=== PATIENT | female | born 1950 | race Caucasian/White ===

== ENCOUNTER → 2016-06-24 | Outpatient (CLI) | payer BC, OTHER ==
[~2016-06-24] VITALS: Ht 156.8 cm; Wt 74.8 kg
[~2016-06-24] MED LIST: ACET1TAB84 PO; CLIN1LOT5 TOP; ERGO1CAP35 PO; LPT/20 PO; MECL1TAB42 PO; ONDA4TAB65 PO; OXYC1TAB3 PO; PANT40TA PO; PROB1TAB16 PO; RIVA1TAB PO; SERT-234 PO; THIO50TA PO; TRAM-453 PO; TURMERIC PO; VALA1TAB31 PO; [UNRECOGNIZED DRUG - CODE] OPB
[2016-06-24 09:04] VITALS: Ht 156.8 cm; Wt 74.8 kg
--- NOTE | 2016-06-24 09:38 | PAT Medication Instructions ---
Service Date June 24, 2016. Current Home Medication List Acetaminophen (Tylenol Arthritis Ext Rel), 1,300 MG PO PRN Atorvastatin (Atorvastatin Calcium), 20 MG PO QAM Clindamycin Phosphate (Topical (Clindamycin Phosphate), 1 APPLN TOP PRN Ergocalciferol (Vitamin D Cap), 50,000 INTER.UNIT PO MONTHLY Vnaajmod-Csktcixmiqjk-Ywzpjhwa (Visine Tears), 1 DROP OPB QAM PRN Pantoprazole (Protonix), 40 MG PO BID Probiotic Product (Probiotic), 1 TAB PO QPM Sertraline (Zoloft), 100 MG PO QAM Thioridazine Hcl (Mellaril), 50 MG PO HS Tramadol Hcl (Ultram), 100 MG PO Q4H PRN for Pain Valacyclovir Hcl (Valtrex), 1 GM PO UD [Turmeric], 1 TAB PO QPM Medication Instructions For Your Scheduled Surgery Ergocalciferol (Vitamin D Cap), 50,000 INTER.UNIT PO MONTHLY (continue as directed) - Hold the following medications 2 weeks prior to surgery: [Turmeric], 1 TAB PO QPM - Hold the following medications 24 hours prior to surgery: Clindamycin Phosphate (Topical (Clindamycin Phosphate), 1 APPLN TOP PRNf - Take the following medications the morning of surgery with a sip of water: Valacyclovir Hcl (Valtrex), 1 GM PO UD PRN (if needed) Tramadol Hcl (Ultram), 100 MG PO Q4H PRN for Pain (okay to take up to 4 hours prior to surgery if needed) Sertraline (Zoloft), 100 MG PO QAM Pantoprazole (Protonix), 40 MG PO BID Vhcvchyp-Unerdjueetgn-Chotpkdr (Visine Tears), 1 DROP OPB QAM PRN (If needed) Acetaminophen (Tylenol Arthritis Ext Rel), 1,300 MG PO PRN (If needed) Atorvastatin (Atorvastatin Calcium), 20 MG PO QAM - Take the following medications as scheduled the night before surgery: Tramadol Hcl (Ultram), 100 MG PO Q4H PRN for Pain (If needed) Probiotic Product (Probiotic), 1 TAB PO QPM Pantoprazole (Protonix), 40 MG PO BID Acetaminophen (Tylenol Arthritis Ext Rel), 1,300 MG PO PRN (If needed) Thioridazine Hcl (Mellaril), 50 MG PO HS If you have any questions please call us at [phone] (Ursula Morris PA-C ) or [phone] or [phone]
--- NOTE | 2016-06-24 10:08 | DIAGNOSTIC IMAGING REPORT ---
CHEST PREADMISSION(PA/LAT) HISTORY: Preop. COMPARISON: Chest 09/06/2014. FINDINGS: The lungs are clear. Cardiac silhouette is normal in size. No pleural effusions. No pneumothorax. Cholecystectomy. IMPRESSION: No acute process. Electronically signed by: Dion Cook M.D. 06/24/2016 10:07 AM Dictated Date/Time: 06/24/2016 10:04 AM
[2016-06-24 10:18] LABS: BASO % 0.2 %; BASO ABS # 0.01 K/uL (0-0.2); COMPLETE YES; EOS % 1.7 %; HEMATOCRIT 36.6 % (37-47); IG% 0.4 %; LYMPH % 35.1 %; LYMPH ABS # 1.88 K/uL (1.2-3.4); MEAN CELL VOLUME 93.8 fL (80-100); MONO % 9.5 %; NEUT % 53.1 %; PLATELET COUNT 239 K/uL (130-400); WHITE BLOOD COUNT 5.36 K/uL (4.8-10.8)
[2016-06-24 10:32] LABS: PROTHROMBIN TIME (PATIENT) 10.7 SECONDS (9.0-12.0)
[2016-06-24 10:33] LABS: CREATININE 1.1 mg/dl (0.60-1.20); POTASSIUM 4.2 mmol/L (3.5-5.1)
[2016-06-24 10:37] LABS: C-REACTIVE PROTEIN 0.32 mg/dl (0-0.29)
== END | disposition home or self-care (01) ==
LOC: C.LAB 08:00 → EDSTATUS 07-22 12:30
PROVIDERS: ATTEND Orthopaedic Surgery Sports Medicine
DX: Z01.818 Encounter for other preprocedural examination (principal); M17.9 Osteoarthritis of knee, unspecified

== ENCOUNTER → 2016-06-30 | Outpatient (CLI) | payer BC ==
[~2016-06-30] MED LIST changes: +ERGO500011 PO; -MECL1TAB42 PO; -ONDA4TAB65 PO; -OXYC1TAB3 PO; +PANT40TA2 PO; -RIVA1TAB PO; +ZLF/100 PO
--- NOTE | 2016-06-30 16:22 | DIAGNOSTIC IMAGING REPORT ---
TWO VIEW CHEST CLINICAL HISTORY: Cough. FINDINGS: PA and lateral chest radiographs are compared to study dated 06/24/2016. The cardiomediastinal silhouette is unremarkable. There are ill-defined airspace opacities in the right mid to upper lung. The left lung appears clear. No pleural effusion or pneumothorax is seen. The skeletal structures are osteopenic. The bony thorax appears intact. Cholecystectomy clips are identified in the right upper quadrant. IMPRESSION: There are ill-defined/patchy airspace opacities in the right mid to upper lung. Correlate clinically for evidence of pneumonia. Radiographic follow-up to resolution is recommended. Electronically signed by: Mario Campa M.D. 06/30/2016 4:21 PM Dictated Date/Time: 06/30/2016 4:18 PM
== END | disposition home or self-care (01) ==
LOC: C.RADBC 16:10
PROVIDERS: ATTEND Internal Medicine
DX: R05 Cough (principal)

== ENCOUNTER → 2016-08-05 | Outpatient (CLI) | payer BC ==
--- NOTE | 2016-08-05 13:24 | DIAGNOSTIC IMAGING REPORT ---
TWO VIEW CHEST CLINICAL HISTORY: Follow-up pneumonia. FINDINGS: PA and lateral chest radiographs are compared to study dated 06/30/2016 and correlated with chest CT dated 10/18/2008. The cardiomediastinal silhouette is unremarkable. Chronic interstitial thickening is unchanged. The lungs and pleural spaces are otherwise clear. There is no pneumothorax. The skeletal structures are osteopenic. Degenerative change is noted throughout the thoracic spine. Cholecystectomy clips are identified in the right upper quadrant. IMPRESSION: The lungs are clear. Patchy airspace opacities seen on 06/30/2016 have resolved. Electronically signed by: Mario Campa M.D. 08/05/2016 1:23 PM Dictated Date/Time: 08/05/2016 1:22 PM
== END | disposition home or self-care (01) ==
LOC: C.LABBC 13:00
PROVIDERS: ATTEND Internal Medicine
DX: J15.9 Unspecified bacterial pneumonia (principal)

== ENCOUNTER → 2016-08-26 | Outpatient (CLI) | payer BC ==
[~2016-08-26] MED LIST changes: -ERGO500011 PO; -PANT40TA2 PO; -ZLF/100 PO
[2016-08-26 17:17] LABS: HEMATOCRIT 40.2 % (37-47); MEAN CELL VOLUME 92.6 fL (80-100); MEAN CORPUSCULAR HGB CONC 32.3 g/dl (32-36); MEAN PLATELET VOLUME 9.9 fL (7.4-10.4); PLATELET COUNT 230 K/uL (130-400); RED BLOOD COUNT 4.34 M/uL (4.2-5.4); WHITE BLOOD COUNT 4.79 K/uL (4.8-10.8)
[2016-08-26 17:19] LABS: URINE APPEARANCE CLEAR (CLEAR); URINE BILIRUBIN NEG (NEG); URINE COLOR YELLOW; URINE NITRITE NEG (NEG); URINE PH 5.5 (4.5-7.5); URINE SPECIFIC GRAVITY 1.014 (1.000-1.030); UROBILINOGEN NEG (NEG)
[2016-08-26 17:22] LABS: MANUAL MICROSCOPIC REQUIRED? NO; REVIEW REQ? NO
[2016-08-26 17:29] LABS: BLOOD UREA NITROGEN 18 mg/dl (7-18); BUN/CREATININE RATIO 16.8 (10-20); CALCIUM 8.9 mg/dl (8.5-10.1); CARBON DIOXIDE 25 mmol/L (21-32); CHLORIDE 110 mmol/L (98-107); GLUCOSE 99 mg/dl (70-99); PHOSPHORUS 2.7 mg/dl (2.5-4.9); SODIUM 142 mmol/L (136-145)
[2016-08-26 17:45] LABS: URINE PROTIEN/CREAT RATIO 0.1 (0-0.2); URINE TOTAL PROTEIN 7.8 mg/dl (0-11.9)
== END | disposition home or self-care (01) ==
LOC: C.LABBC 13:00
PROVIDERS: ATTEND Internal Medicine Nephrology
DX: N18.3 Chronic kidney disease, stage 3 (moderate) (principal); E55.9 Vitamin D deficiency, unspecified; N25.81 Secondary hyperparathyroidism of renal origin

== ENCOUNTER → 2016-11-11 | Outpatient (CLI) | payer BC ==
[2016-11-11 12:53] LABS: THYROID STIMULATING HORMONE 2.49 uIu/ml (0.300-4.500)
== END | disposition home or self-care (01) ==
LOC: C.LAB1850 10:14
PROVIDERS: ATTEND Obstetrics & Gynecology
DX: R23.2 Flushing (principal)

== ENCOUNTER → 2016-11-19 | Outpatient (CLI) | payer BC ==
--- NOTE | 2016-11-20 13:53 | MAMMOGRAPHY REPORT ---
BILATERAL DIGITAL SCREENING MAMMOGRAM TOMOSYNTHESIS WITH CAD: 11/19/2016 CLINICAL HISTORY: Routine screening. Patient has no complaints. TECHNIQUE: Breast tomosynthesis in addition to standard 2D mammography was performed. Current study was also evaluated with a Computer Aided Detection (CAD) system. COMPARISON: Comparison is made to exams dated: 11/19/2015 mammogram, 11/16/2014 mammogram, 10/31/2013 m ammogram, 10/29/2012 mammogram, 10/29/2011 mammogram, and 12/18/2010 mammogram - [facility] enter. BREAST COMPOSITION: The tissue of both breasts is almost entirely fatty. FINDINGS: Stable circumscribed round 3 mm mass in the 12:00 posterior left breast is unchanged in siz e dating back to at least 2013, therefore likely benign. No new suspicious mass, architectural disto rtion or cluster of microcalcifications is seen. IMPRESSION: ACR BI-RADS CATEGORY 1: NEGATIVE There is no mammographic evidence of malignancy. A 1 year screening mammogram is recommended. The pa tient will receive written notification of the results. Approximately 10% of breast cancers are not detected with mammography. A negative mammographic report should not delay biopsy if a clinically suggestive mass is present. Cuca Grady M.D. ay/:11/19/2016 14:01:31 Podiatry Professor: Nicolasa GUADARRAMA(Elisa)(Hal), [facility] letter sent: Normal 1/2 BI-RADS Code: ACR BI-RADS Category 1: Negative
== END ==
LOC: C.MAMM 13:28
PROVIDERS: ATTEND Obstetrics & Gynecology
DX: Z12.31 Encounter for screening mammogram for malignant neoplasm of breast (principal)

== ENCOUNTER 2016-12-02 13:47 | Emergency (ER) | payer BC ==
[~2016-12-02] VITALS: Ht 154.9 cm; Wt 69.0 kg
[~2016-12-02 13:47] MED LIST changes: -THIO50TA PO
[2016-12-02 13:50] VITALS: TEMP 36.5; Ht 154.9 cm; Wt 69.0 kg
--- NOTE | 2016-12-02 14:38 | EMERGENCY ROOM VISIT NOTE ---
History First contact with patient: 13:58 Chief Complaint: BACK PAIN Stated Complaint: BACK AND RIGHT SIDE PAIN History of Present Illness The patient is a 66 year old female who presents to the Emergency Room with complaints of right upper quadrant/right rib pain. The patient states that this is been an ongoing issue for many years. States that it comes and goes and she often notices it when she is up moving around. She describes a burning pain that starts in her right anterior ribs, and radiates up into the axilla and then into the back to a point in the midthoracic area just to the right of the spine. The pain gets better when she has a meal. This morning she took Protonix and Tums and thought that it actually slightly better. The pain is not associated with walking or exertion. She treats in part her pain worsened today because she was using a medicine ball at home to release and chronic back pain and is maybe she overdid it. Of note the patient does have a history of cholecystectomy. She notes that she has also been given a diagnosis of costochondritis in the past. The patient denies any nausea, vomiting, diarrhea or constipation. The patient does not have any exertional chest pain, palpitations, lightheadedness or dizziness, orthopnea or lower external swelling. The patient is not having any issues with voiding and is urinating any symptoms of dysuria or frequency. She does note that over the past week and her sister was in town visiting and they had multiple drinks alcohol. She states that at baseline she would previous drink 1.5 fluid ounces of whiskey per night. However she says that she recently stopped this because she is now on a [employer] program. Review of Systems A 10 point review of systems was negative unless stated above. Past Medical/Surgical History Medical Problems: (1) Right Knee DJD (2) Stage III chronic kidney disease Surgical Problems: (1) Status post right knee replacement Hypoparathyroidism Chronic Back Pain Osteoarthritis Schizoaffective Social History Smoking Status: Never Smoker Smokeless Tobacco Use: No Alcohol Use: occasionally (1.5 oz J Carlos nightly) Drug Use: none Marital Status: Occupation Status: unemployed Current/Historical Medications Scheduled Atorvastatin (Atorvastatin Calcium), 20 MG PO QAM Ergocalciferol (Vitamin D 02400 Unit), 50,000 INTER.UNIT PO MONTHLY Pantoprazole (Pantoprazole Sodium), 40 MG PO BID Sertraline HCl (Sertraline HCl), 100 MG PO QAM Thioridazine Hcl (Mellaril), 50 MG PO HS Valacyclovir Hcl (Valtrex), 1 GM PO UD Scheduled PRN Acetaminophen (Tylenol Arthritis Ext Rel), 1,300 MG PO UD PRN for Pain Bcfoumel-Anvpgjkrqkqb-Shipaojj (Visine Tears), 1 DROP OPB QAM PRN for Dry Eye(s) Allergies As noted above. Physical Exam Vital Signs Date Time Temp Pulse Resp B/P (MAP) Pulse Ox O2 Delivery O2 Flow Rate FiO2 12/02/16 16:16 65 20 140/85 95 Room Air 12/02/16 13:50 36.5 80 16 167/81 93 Room Air Physical Exam Constitutional: Vital signs as above were reviewed. Eyes: Pupils equal, round, and reactive to light. Extraocular muscles are intact. No proptosis. No photophobia. ENT: Mucous membranes are moist. Oropharynx is clear. Chest Wall: Chest wall tenderness in the axilla. No obvious deformity. No rashes or vesicular rashes Cardiovascular: Heart with a regular rate and rhythm. Pulses are palpable and symmetric in all 4 extremities. No pedal edema appreciated. Respiratory: Lungs clear to auscultation bilaterally. No wheezes, rales, or rhonchi appreciated. No accessory muscle use. No retractions. No increased work of breathing. GI: Abdomen soft, nontender, nondistended. Normal active bowel sounds. No abdominal hernias appreciated. No rebound. No guarding. Negative Jimenez's signs : No CVA tenderness appreciated. Musculoskeletal: No midline cervical or vertebral tenderness. No gross deformities. No bony tenderness. No calf swelling or tenderness. Integumentary: Warm, dry, no rashes appreciated. No vesicular rashes. Neurological: Patient awake, alert, and oriented x 3. Lymph: No cervical lymphadenopathy appreciated. Medical Decision & Procedures ER Provider Diagnostic Interpretation: RIGHT RIBS INCLUDING PA ERECT CHEST CLINICAL HISTORY: Right-sided rib pain COMPARISON STUDY: No previous studies for comparison. FINDINGS: Erect chest reveals no pneumothorax. There is no focal pulmonary consolidation. There are surgical clips within the right upper quadrant consistent with a prior cholecystectomy. No right-sided rib fractures are visualized. IMPRESSION: No evidence of pneumothorax. No right-sided rib fractures are visualized. Electronically signed by: Peña Rose M.D. 12/02/2016 3:55 PM Dictated Date/Time: 12/02/2016 3:54 PM The status of this report is Signed. Draft = Not yet reviewed or approved by Radiologist. Signed = Reviewed and approved by Radiologist. THORACIC SPINE 3 VIEWS ROUTINE CLINICAL HISTORY: back pain COMPARISON STUDY: No previous studies for comparison. FINDINGS: The paraspinal line is not significantly displaced. There are multilevel degenerative changes with prominent anterior osteophytes. No fractures or destructive lesions are visualized on conventional radiographic imaging. IMPRESSION: 1. Moderate degenerative change with prominent bridging anterior osteophytes 2. No acute fractures or subluxations identified Electronically signed by: Peña Rose M.D. 12/02/2016 3:54 PM Dictated Date/Time: 12/02/2016 3:53 PM The status of this report is Signed. Draft = Not yet reviewed or approved by Radiologist. Signed = Reviewed and approved by Radiologist. Laboratory Results 12/02/16 14:10 Red Blood Count 4.10, Mean Corpuscular Volume 91.5, Mean Corpuscular Hemoglobin 30.5, Mean Corpuscular Hemoglobin Concent 33.3, Mean Platelet Volume 9.2, Neutrophils (%) (Auto) 74.4, Lymphocytes (%) (Auto) 18.1, Monocytes (%) (Auto) 6.0, Eosinophils (%) (Auto) 1.1, Basophils (%) (Auto) 0.2, Neutrophils # (Auto) 4.81, Lymphocytes # (Auto) 1.17, Monocytes # (Auto) 0.39, Eosinophils # (Auto) 0.07, Basophils # (Auto) 0.01 12/02/16 14:10 Test 12/02/16 14:10 White Blood Count 6.46 K/uL (4.8-10.8) Red Blood Count 4.10 M/uL (4.2-5.4) Hemoglobin 12.5 g/dL (12.0-16.0) Hematocrit 37.5 % (37-47) Mean Corpuscular Volume 91.5 fL (80-100) Mean Corpuscular Hemoglobin 30.5 pg (25-34) Mean Corpuscular Hemoglobin Concent 33.3 g/dl (32-36) Platelet Count 188 K/uL (130-400) Mean Platelet Volume 9.2 fL (7.4-10.4) Neutrophils (%) (Auto) 74.4 % Lymphocytes (%) (Auto) 18.1 % Monocytes (%) (Auto) 6.0 % Eosinophils (%) (Auto) 1.1 % Basophils (%) (Auto) 0.2 % Neutrophils # (Auto) 4.81 K/uL (1.4-6.5) Lymphocytes # (Auto) 1.17 K/uL (1.2-3.4) Monocytes # (Auto) 0.39 K/uL (0.11-0.59) Eosinophils # (Auto) 0.07 K/uL (0-0.5) Basophils # (Auto) 0.01 K/uL (0-0.2) RDW Standard Deviation 47.8 fL (36.4-46.3) RDW Coefficient of Variation 14.3 % (11.5-14.5) Immature Granulocyte % (Auto) 0.2 % Immature Granulocyte # (Auto) 0.01 K/uL (0.00-0.02) Anion Gap 8.0 mmol/L (3-11) Est Creatinine Clear Calc Drug Dose 43.5 ml/min Estimated GFR () 57.6 Estimated GFR (Non- 49.7 BUN/Creatinine Ratio 21.9 (10-20) Calcium Level 9.4 mg/dl (8.5-10.1) Total Bilirubin 0.4 mg/dl (0.2-1) Aspartate Amino Transf (AST/SGOT) 18 U/L (15-37) Alanine Aminotransferase (ALT/SGPT) 11 U/L (12-78) Alkaline Phosphatase 107 U/L (45-117) Total Protein 7.0 gm/dl (6.4-8.2) Albumin 3.6 gm/dl (3.4-5.0) Globulin 3.4 gm/dl (2.5-4.0) Albumin/Globulin Ratio 1.0 (0.9-2) Lipase 202 U/L (73-393) ECG Change: Normal sinus rhythm Normal ECG When compared with ECG of 24-JUN-2016 09:49, No significant change was found ED Course 14:00 - The patient was seen and evaluated by Dr. Pietro Malone MD [address] Medicine 14:30 - Labs: CBC, CMP, Lipase, EKG, CXR 14:40 - X-ray thoracic spine, Right rib series 16:25 - Reviewed labs and x-rays; normal labs. No acute abnormalities noted 16:40 - Discussed labs and x-ray results with patient; recommend discharge home with PCP follow-up, patient agreeable 16:45 - Discharge paperwork completed Medical Decision The patient presents with chronic right anterior and axillary rib pain, and addition to a fairly recent increase in discomfort to her right mid thoracic spine. Differential includes gallbladder disease, hepatitis, rib fracture, costochondritis, ACS, pulmonary embolism, pneumothorax, gastritis, peptic ulcer disease, pancreatitis, shingles. The patient has had right breast lumpectomy previously, so the possible that there is some nerve irritation over the healing ridge. She also notes previous diagnosis of costochondritis. The patient has had her gallbladder removed previously, therefore cholecystitis is not possible but the possibility of retained stone could be considered. The patient did get relief from Protonix and Tums, making gastritis possibility. The patient has of a history of shingles that usually presents on her left buttock. With any episodes of this rib pain which she describes as burning, she 's never had any kind of vesicular rash eruption. Given recurrent episodes of this right anterior chest pain without any vesicular eruption, my suspicion for shingles very low. The pain is not associated with being upright and walking, therefore pattern in time he is really consistent with acute coronary syndrome. The pain does radiate somewhat to the paraspinal area in the mid thoracic spine. It is certainly possible that there is some serratus anterior spasm involved. In my opinion the origin of her pain seems multifactorial. She is noted to have some costochondritis and this can certainly be an element of that. She has chronic back pain, and imbalance on the paraspinal muscles of the resulting disruption of adjacent muscles such as the serratus or trapezius muscles. Radiographs were negative for any acute bony process such as fractures or dislocations. There may be GI component to her symptoms given that she has some improvement with Protonix and Tums use. I encouraged her to continue on with these at this time and that her shorer would make the decision as to whether her symptoms are suspicious for GI etiology. We did check labs, and her liver function was normal. She is also concerned about pancreatitis, but lipase was fortunately normal. At this time there are no acute findings that would warrant admission. I reassured the patient that she does not have pancreatitis, and that the origin of her pain seems to be more musculoskeletal. I noted her the close follow-up with her primary care provider will be important. She may also benefit from outpatient referral for physical therapy which can be done through her primary care provider. The patient was reassured by this and was very agreeable to the plan. The patient was discharged home in stable condition. Head Trauma GCS Score: 15 Blood Pressure Screening Patient's blood pressure: Normal blood pressure Blood pressure disposition: Elevated BP felt to be situational Impression Primary Impression: Right-sided chest wall pain Additional Impression: Thoracic back pain Ruled Out: Pancreatitis Departure Information Dispostion Home / Self-Care Condition GOOD Referrals Jesus Jimenez MD (PCP) Patient Instructions My [facility] Additional Instructions You came to the emergency room for some pain in your right ribs as well as pain in your right mid back. We checked x-rays of your ribs and back. These showed some arthritis in the back, but no fractures. You did not have any rib fractures. We also checked lab work. Your liver function is normal. We also did a lab test called a lipase which checks for pancreatitis and this was normal as well. When we examined you, you had some tenderness in your your right chest and arm pit. This points to more of a muscular cause. You can try and treat this at home with Tylenol, and if Tylenol does not work he can try your home dose of Tramadol. You can also try and heat packs and ice packs. If this is muscular, it may be worth seeing a physical therapist for input on exercises that may help with this. If your symptoms fail to improve, acutely worsen, please seek medical attention immediately by either calling your primary care provider or going to your nearest emergency department. Otherwise, please see your primary care provider to ensure that your symptoms continue to improve. It was a pleasure to be involved in your care and we wish you all the best. Problem Qualifiers
[2016-12-02 14:56] LABS: BASO % 0.2 %; BASO ABS # 0.01 K/uL (0-0.2); COMPLETE YES; EOS % 1.1 %; HEMATOCRIT 37.5 % (37-47); IG% 0.2 %; LYMPH % 18.1 %; LYMPH ABS # 1.17 K/uL (1.2-3.4); MEAN CELL VOLUME 91.5 fL (80-100); MEAN CORPUSCULAR HEMOGLOBIN 30.5 pg (25-34); MEAN CORPUSCULAR HGB CONC 33.3 g/dl (32-36); MEAN PLATELET VOLUME 9.2 fL (7.4-10.4); NEUT % 74.4 %; PLATELET COUNT 188 K/uL (130-400); WHITE BLOOD COUNT 6.46 K/uL (4.8-10.8)
[2016-12-02 15:14] LABS: BUN/CREATININE RATIO 21.9 (10-20); CALCIUM 9.4 mg/dl (8.5-10.1); CREATININE 1.16 mg/dl (0.60-1.20); POTASSIUM 3.7 mmol/L (3.5-5.1)
[2016-12-02] MEDS ORDERED: ERGO1CAP41 PO (15:28)
[2016-12-02] MEDS ORDERED: PRT/40 PO (15:28)
[2016-12-02] MEDS ORDERED: ZLF/100 PO (15:28)
--- NOTE | 2016-12-02 15:55 | DIAGNOSTIC IMAGING REPORT ---
THORACIC SPINE 3 VIEWS ROUTINE CLINICAL HISTORY: back pain COMPARISON STUDY: No previous studies for comparison. FINDINGS: The paraspinal line is not significantly displaced. There are multilevel degenerative changes with prominent anterior osteophytes. No fractures or destructive lesions are visualized on conventional radiographic imaging. IMPRESSION: 1. Moderate degenerative change with prominent bridging anterior osteophytes 2. No acute fractures or subluxations identified Electronically signed by: Peña Rose M.D. 12/02/2016 3:54 PM Dictated Date/Time: 12/02/2016 3:53 PM
--- NOTE | 2016-12-02 15:56 | DIAGNOSTIC IMAGING REPORT ---
RIGHT RIBS INCLUDING PA ERECT CHEST CLINICAL HISTORY: Right-sided rib pain COMPARISON STUDY: No previous studies for comparison. FINDINGS: Erect chest reveals no pneumothorax. There is no focal pulmonary consolidation. There are surgical clips within the right upper quadrant consistent with a prior cholecystectomy. No right-sided rib fractures are visualized. IMPRESSION: No evidence of pneumothorax. No right-sided rib fractures are visualized. Electronically signed by: Peña Rose M.D. 12/02/2016 3:55 PM Dictated Date/Time: 12/02/2016 3:54 PM
[2016-12-02 16:16] VITALS: BP 140/85; PULSE 65; O2SAT 95
--- NOTE | 2016-12-02 20:02 | EMERGENCY ROOM VISIT NOTE ---
History Report prepared by Bianca: Sony Almanza Under the Supervision of: Dr. Sahil Robles M.D. First contact with patient: 13:58 Chief Complaint: BACK PAIN Stated Complaint: BACK AND RIGHT SIDE PAIN History of Present Illness The patient is a 66 year old female who presents to the Emergency Room with complaints of intermittent right upper abdominal pain beginning three days ago. Her pain wraps around into her upper right back. She states that the pain in her back has been present for "months", but she has not had similar pain in her abdomen in 15 years. The patient describes her pain as "burning". She notes that she had stopped drinking alcohol, but had some over the past weekend. She states that she has been having small amounts of J [place]. The patient states that her pain is improved after eating and Protonix. She denies nausea, vomiting, diarrhea, urinary symptoms, black or tarry stools, fevers, rashes, chest pain, or SOB. She has a history of cholecystectomy and chronic back pain. The patient notes that she has lost weight recently, and has been following a Weight Watchers diet. She says her pain was better when she was eating normally when her family was visiting but as soon as she went on Weight Watchers her pain came back. Source of History: patient Onset: A few years ago Position: abdomen (right upper) Quality: burning Modifying Factors (Relieving): eating, other (Protonix) Associated Symptoms: + back pain, No fevers, No chest pain, No SOB, No nausea, No vomiting, No melena, No diarrhea, No urinary symptoms, No rash Review of Systems See HPI for pertinent positives & negatives. A total of 10 systems reviewed and were otherwise negative. Past Medical & Surgical Medical Problems: (1) Right Knee DJD (2) Stage III chronic kidney disease Surgical Problems: (1) Status post right knee replacement Family History No pertinent family history stated. Social History Smoking Status: Former Smoker Alcohol Use: occasionally Drug Use: none Marital Status: Occupation Status: unemployed Current/Historical Medications Scheduled Atorvastatin (Atorvastatin Calcium), 20 MG PO QAM Ergocalciferol (Vitamin D 01508 Unit), 50,000 INTER.UNIT PO MONTHLY Pantoprazole (Pantoprazole Sodium), 40 MG PO BID Sertraline HCl (Sertraline HCl), 100 MG PO QAM Thioridazine Hcl (Mellaril), 50 MG PO HS Valacyclovir Hcl (Valtrex), 1 GM PO UD Scheduled PRN Acetaminophen (Tylenol Arthritis Ext Rel), 1,300 MG PO UD PRN for Pain Jkaicmkf-Hbgaqrkwitpl-Fmelzcdt (Visine Tears), 1 DROP OPB QAM PRN for Dry Eye(s) Allergies Coded Allergies: Fluticasone (Verified Allergy, Severe, AIRWAY EDEMA, 06/24/16) PER PCP RECORDS Chlorhexidine (Verified Allergy, Intermediate, CONTACT DERMATITIS, 06/24/16) Codeine (Verified Adverse Reaction, Intermediate, URINARY RETENTION, ) Hydrocodone (Verified Adverse Reaction, Intermediate, URINARY RETENTION, ) Oxycodone (Verified Adverse Reaction, Intermediate, SYNCOPE,NAUSEA AND VOMITING DEPRESSION, 06/24/16) Aspirin (Verified Adverse Reaction, Unknown, DYSPEPSIA, 06/24/16) Lansoprazole (Verified Adverse Reaction, Unknown, ABDOMINAL PAIN, 06/24/16) Physical Exam Vital Signs Date Time Temp Pulse Resp B/P (MAP) Pulse Ox O2 Delivery O2 Flow Rate FiO2 12/02/16 16:16 65 20 140/85 95 Room Air 12/02/16 13:50 36.5 80 16 167/81 93 Room Air Physical Exam Constitutional: Vital signs reviewed. Eyes: Pupils are equal round reactive to light. Conjunctiva are noninjected. ENT: Pharynx is clear without erythema or exudate. Mucous membranes are moist. Neck supple without meningeal signs. Respiratory: Clear to auscultation bilaterally. Breath sounds are equal bilaterally. Cardiovascular: Regular rate and rhythm. No rubs or gallops. GI: Soft, nondistended and nontender. Bowel sounds are present. Musculoskeletal: No peripheral edema. No lower extremity tenderness. No midline tenderness to the thoracic or lumbar spine. No CVA tenderness. Mild tenderness over the right ribs with palpation over the mid-axillary line and anterior right ribs. Integumentary: No cyanosis. No rash. Neurological: The patient is awake and alert. No focal deficits. Psychiatric: Normal affect. Medical Decision & Procedures ER Provider Diagnostic Interpretation: X-ray results as stated below per interpretation by me and the radiologist: RIGHT RIBS INCLUDING PA ERECT CHEST FINDINGS: Erect chest reveals no pneumothorax. There is no focal pulmonary consolidation. There are surgical clips within the right upper quadrant consistent with a prior cholecystectomy. No right-sided rib fractures are visualized. IMPRESSION: No evidence of pneumothorax. No right-sided rib fractures are visualized. Electronically signed by: Peña Rose M.D. 12/02/2016 3:55 PM THORACIC SPINE 3 VIEWS ROUTINE FINDINGS: The paraspinal line is not significantly displaced. There are multilevel degenerative changes with prominent anterior osteophytes. No fractures or destructive lesions are visualized on conventional radiographic imaging. IMPRESSION: 1. Moderate degenerative change with prominent bridging anterior osteophytes 2. No acute fractures or subluxations identified Electronically signed by: Peña Rose M.D. 12/02/2016 3:54 PM Laboratory Results 12/02/16 14:10 Red Blood Count 4.10, Mean Corpuscular Volume 91.5, Mean Corpuscular Hemoglobin 30.5, Mean Corpuscular Hemoglobin Concent 33.3, Mean Platelet Volume 9.2, Neutrophils (%) (Auto) 74.4, Lymphocytes (%) (Auto) 18.1, Monocytes (%) (Auto) 6.0, Eosinophils (%) (Auto) 1.1, Basophils (%) (Auto) 0.2, Neutrophils # (Auto) 4.81, Lymphocytes # (Auto) 1.17, Monocytes # (Auto) 0.39, Eosinophils # (Auto) 0.07, Basophils # (Auto) 0.01 12/02/16 14:10 Test 12/02/16 14:10 White Blood Count 6.46 K/uL (4.8-10.8) Red Blood Count 4.10 M/uL (4.2-5.4) Hemoglobin 12.5 g/dL (12.0-16.0) Hematocrit 37.5 % (37-47) Mean Corpuscular Volume 91.5 fL (80-100) Mean Corpuscular Hemoglobin 30.5 pg (25-34) Mean Corpuscular Hemoglobin Concent 33.3 g/dl (32-36) Platelet Count 188 K/uL (130-400) Mean Platelet Volume 9.2 fL (7.4-10.4) Neutrophils (%) (Auto) 74.4 % Lymphocytes (%) (Auto) 18.1 % Monocytes (%) (Auto) 6.0 % Eosinophils (%) (Auto) 1.1 % Basophils (%) (Auto) 0.2 % Neutrophils # (Auto) 4.81 K/uL (1.4-6.5) Lymphocytes # (Auto) 1.17 K/uL (1.2-3.4) Monocytes # (Auto) 0.39 K/uL (0.11-0.59) Eosinophils # (Auto) 0.07 K/uL (0-0.5) Basophils # (Auto) 0.01 K/uL (0-0.2) RDW Standard Deviation 47.8 fL (36.4-46.3) RDW Coefficient of Variation 14.3 % (11.5-14.5) Immature Granulocyte % (Auto) 0.2 % Immature Granulocyte # (Auto) 0.01 K/uL (0.00-0.02) Anion Gap 8.0 mmol/L (3-11) Est Creatinine Clear Calc Drug Dose 43.5 ml/min Estimated GFR () 57.6 Estimated GFR (Non- 49.7 BUN/Creatinine Ratio 21.9 (10-20) Calcium Level 9.4 mg/dl (8.5-10.1) Total Bilirubin 0.4 mg/dl (0.2-1) Aspartate Amino Transf (AST/SGOT) 18 U/L (15-37) Alanine Aminotransferase (ALT/SGPT) 11 U/L (12-78) Alkaline Phosphatase 107 U/L (45-117) Total Protein 7.0 gm/dl (6.4-8.2) Albumin 3.6 gm/dl (3.4-5.0) Globulin 3.4 gm/dl (2.5-4.0) Albumin/Globulin Ratio 1.0 (0.9-2) Lipase 202 U/L (73-393) Laboratory results as reviewed by me. ECG Indication: abdominal pain Rate (beats per minute): 60 Rhythm: normal sinus Findings: no acute ischemic change, no ectopy ED Course 1400: The patient was evaluated in room B12B. A complete history and physical exam was performed. 1451: Upon reevaluation, the patient appeared to have improvement of her symptoms. I discussed tonight's findings with her. She verbalized agreement of the treatment plan. The patient was discharged home. Medical Decision This is a 66-year-old female who presents with right-sided flank pain. Differential diagnosis includes choledocholithiasis, peptic ulcer disease, duodenitis, irritable bowel syndrome, pneumonia, pleurisy. I did perform a limited focused review of portions of the patient's old chart on the electronic medical record. The patient has had no recent pertinent visits to this hospital. I did evaluate the patient as noted above. The patient is presenting with right -sided flank pain. She has had similar pain for over 15 years. She states that she has a pain more often than she doesn't. It seems to get better after eating and is worse when she has not eaten. On examination she has no significant tenderness to her abdomen. She does have some rib tenderness which she describes as a burning. She does not have any rash to suggest zoster. She has no abdominal tenderness to suggest an acute surgical process. The patient was concerned about pancreatitis. IV access was established. The patient was placed on a continuous manager cardiac. I did order and personally review the patient's 12-lead EKG and chest, thoracic spine and rib x-rays as described above. I did order and review the patient's blood work as noted in the electronic medical record. Her labs are unremarkable. Her LFTs and lipase are not elevated. Her white blood cell count is not elevated. Her test results were discussed with her. She was advised follow. With her doctor and discharged in good condition. She was told to take her Protonix as prescribed rather than as needed. Resident Physician Supervision Note: I did evaluate and examine this patient myself. I did guide management for the patient. I agree with the resident's (Dr. Malone) assessment as discussed. Please see the resident's dictation for further details. Medication Reconcilliation Current Medication List: was personally reviewed by me Blood Pressure Screening Patient's blood pressure: Elevated blood pressure Blood pressure disposition: Referred to PCP Impression Primary Impression: Right-sided chest wall pain Additional Impressions: Thoracic back pain Right-sided abdominal pain of unknown cause Scribe Attestation The scribe's documentation has been prepared under my direct and personally reviewed by me in its entirety. I confirm that the note above accurately reflects all work, treatment, procedures, and medical decision making performed by me. Departure Information Dispostion Home / Self-Care Referrals Jesus Jimenez MD (PCP) Forms HOME CARE DOCUMENTATION FORM, IMPORTANT VISIT INFORMATION Patient Instructions My [facility] Additional Instructions You came to the emergency room for some pain in your right ribs as well as pain in your right mid back. We checked x-rays of your ribs and back. These showed some arthritis in the back, but no fractures. You did not have any rib fractures. We also checked lab work. Your liver function is normal. We also did a lab test called a lipase which checks for pancreatitis and this was normal as well. When we examined you, you had some tenderness in your your right chest and arm pit. This points to more of a muscular cause. You can try and treat this at home with Tylenol, and if Tylenol does not work he can try your home dose of Tramadol. You can also try and heat packs and ice packs. If this is muscular, it may be worth seeing a physical therapist for input on exercises that may help with this. If your symptoms fail to improve, acutely worsen, please seek medical attention immediately by either calling your primary care provider or going to your nearest emergency department. Otherwise, please see your primary care provider to ensure that your symptoms continue to improve. It was a pleasure to be involved in your care and we wish you all the best. Problem Qualifiers Additional Impressions: Thoracic back pain Chronicity: acute Back pain laterality: right Qualified Codes: M54.6 - Pain in thoracic spine
[2016-12-02] MEDS ORDERED: THIO50TA PO (23:28)
== END 2016-12-02 16:59 | disposition home or self-care (01) ==
LOC: C.EDB 13:48
DX: R07.89 Other chest pain (principal); M54.6 Pain in thoracic spine; G89.29 Other chronic pain; N18.3 Chronic kidney disease, stage 3 (moderate); Z96.651 Presence of right artificial knee joint; E20.9 Hypoparathyroidism, unspecified; F25.9 Schizoaffective disorder, unspecified; Z79.899 Other long term (current) drug therapy; Z90.49 Acquired absence of other specified parts of digestive tract; Z87.891 Personal history of nicotine dependence

== ENCOUNTER → 2016-12-03 | Outpatient (CLI) | payer BC ==
[~2016-12-03] MED LIST changes: -CLIN1LOT5 TOP; -ERGO1CAP35 PO; +ERGO500011 PO; -PANT40TA PO; +PANT40TA2 PO; -PROB1TAB16 PO; -SERT-234 PO; +THIO50TA PO; -TRAM-453 PO; -TURMERIC PO; +ZLF/100 PO
== END | disposition home or self-care (01) ==
LOC: C.PAPS 16:34
PROVIDERS: ATTEND Obstetrics & Gynecology
DX: Z12.4 Encounter for screening for malignant neoplasm of cervix (principal)

== ENCOUNTER → 2016-12-03 | Outpatient (CLI) | payer BC ==
[~2016-12-03] MED LIST changes: +ERGO1CAP41 PO; -ERGO500011 PO; -PANT40TA2 PO; +PRT/40 PO
== END | disposition home or self-care (01) ==
LOC: C.PATHSPEC 16:14
PROVIDERS: ATTEND Obstetrics & Gynecology
DX: N84.1 Polyp of cervix uteri (principal)

== ENCOUNTER → 2017-02-18 | Outpatient (CLI) | payer BC ==
[~2017-02-18] MED LIST changes: -ERGO1CAP41 PO; +ERGO500011 PO; -LPT/20 PO; +LPT20 PO; +PANT40TA2 PO; -PRT/40 PO
[2017-02-18 14:18] LABS: HEMATOCRIT 39.3 % (37-47); HEMOGLOBIN 12.9 g/dL (12.0-16.0); MEAN CELL VOLUME 94.2 fL (80-100); MEAN CORPUSCULAR HEMOGLOBIN 30.9 pg (25-34); MEAN CORPUSCULAR HGB CONC 32.8 g/dl (32-36); MEAN PLATELET VOLUME 9.6 fL (7.4-10.4); PLATELET COUNT 187 K/uL (130-400); RED CELL DISTRIBUTION WIDTH CV 13.5 % (11.5-14.5); RED CELL DISTRIBUTION WIDTH SD 46.2 fL (36.4-46.3); WHITE BLOOD COUNT 5.32 K/uL (4.8-10.8)
[2017-02-18 15:26] LABS: ALBUMIN 3.6 gm/dl (3.4-5.0); BLOOD UREA NITROGEN 22 mg/dl (7-18); CALCIUM 9.1 mg/dl (8.5-10.1); CARBON DIOXIDE 25 mmol/L (21-32); CREATININE 1.16 mg/dl (0.60-1.20); GLUCOSE 91 mg/dl (70-99); PHOSPHORUS 2.8 mg/dl (2.5-4.9); POTASSIUM 3.8 mmol/L (3.5-5.1); SODIUM 140 mmol/L (136-145)
== END | disposition home or self-care (01) ==
LOC: C.LABBC 10:18
PROVIDERS: ATTEND Internal Medicine Nephrology
DX: E78.00 Pure hypercholesterolemia, unspecified (principal); Z11.59 Encounter for screening for other viral diseases; Z11.4 Encounter for screening for human immunodeficiency virus [HIV]; N18.3 Chronic kidney disease, stage 3 (moderate); E55.9 Vitamin D deficiency, unspecified; N25.81 Secondary hyperparathyroidism of renal origin

== ENCOUNTER → 2017-04-14 | Outpatient (CLI) | payer BC ==
--- NOTE | 2017-04-14 16:26 | DIAGNOSTIC IMAGING REPORT ---
LUMBAR SPINE MRI HISTORY: LOW BACK PAIN M54.5 TECHNIQUE: Multiplanar multisequence MRI of the lumbar spine was performed without the use of contrast. COMPARISON: Lumbar spine 12/10/2015. FINDINGS: For the purpose of the report the L5-S1 disc space will be located on axial image 23 of 25. No fracture or subluxation within the lumbar spine. Mild disc space narrowing at L5-S1 and L1-L2. The conus terminates at the L2 level. There are few small scattered hemangiomas within the lumbar spine. Moderate facet degenerative changes seen within the lower lumbar spine. There is a left retroaortic renal vein. Paraspinal soft tissues are unremarkable. L1-L2: No significant central canal or neural foraminal narrowing. L2-L3: No significant central canal or neural foraminal narrowing. L3-L4: No significant central canal or neural foraminal narrowing. L4-L5: Tiny broad-based posterior disc bulge without significant central canal or neural foraminal narrowing. L5-S1: Small broad-based posterior disc bulge with facet hypertrophy resulting in mild central canal and mild bilateral neural foraminal narrowing. IMPRESSION: 1. No fractures or subluxation within the lumbar spine. 2. L5-S1 degenerative changes as described above. 3. Mild disc space narrowing at L1-L2 without significant central canal or neural foraminal narrowing. 4. Moderate facet osteoarthritis at the lower lumbar spine. Electronically signed by: Dion Cook M.D. 04/14/2017 4:25 PM Dictated Date/Time: 04/14/2017 4:16 PM
== END | disposition home or self-care (01) ==
LOC: C.MRIBC 15:13
PROVIDERS: ATTEND Physician Assistant Medical
DX: M54.5 Low back pain (principal); M47.816 Spondylosis without myelopathy or radiculopathy, lumbar region

== ENCOUNTER → 2017-06-29 | Outpatient (CLI) | payer BC ==
[2017-06-29 16:44] LABS: BASO % 0.2 %; BASO ABS # 0.01 K/uL (0-0.2); EOS % 1.1 %; EOS ABS # 0.06 K/uL (0-0.5); HEMATOCRIT 37.7 % (37-47); HEMOGLOBIN 12.5 g/dL (12.0-16.0); LYMPH % 31.4 %; LYMPH ABS # 1.75 K/uL (1.2-3.4); MEAN CORPUSCULAR HEMOGLOBIN 30.5 pg (25-34); MEAN CORPUSCULAR HGB CONC 33.2 g/dl (32-36); MEAN PLATELET VOLUME 9.2 fL (7.4-10.4); MONO % 6.8 %; MONO ABS # 0.38 K/uL (0.11-0.59); NEUT % 60.5 %; NEUT ABS # 3.37 K/uL (1.4-6.5); PLATELET COUNT 179 K/uL (130-400); RED CELL DISTRIBUTION WIDTH CV 13.4 % (11.5-14.5); RED CELL DISTRIBUTION WIDTH SD 44.9 fL (36.4-46.3); WHITE BLOOD COUNT 5.57 K/uL (4.8-10.8)
[2017-06-29 17:14] LABS: ALBUMIN 3.8 gm/dl (3.4-5.0); ALT/SGPT 14 U/L (12-78); AST/SGOT 20 U/L (15-37); BLOOD UREA NITROGEN 16 mg/dl (7-18); CALCIUM 8.8 mg/dl (8.5-10.1); CARBON DIOXIDE 27 mmol/L (21-32); CREATININE 1.19 mg/dl (0.60-1.20); GLUCOSE 88 mg/dl (70-99); POTASSIUM 4.1 mmol/L (3.5-5.1); SODIUM 140 mmol/L (136-145)
[2017-06-29 17:25] LABS: ALKALINE PHOSPHATASE 129 U/L (45-117); TOTAL PROTEIN 7.4 gm/dl (6.4-8.2)
[2017-06-29 17:52] LABS: CREATININE RANDOM URINE 24.5 mg/dl
== END | disposition home or self-care (01) ==
LOC: C.LAB1850 15:55
PROVIDERS: ATTEND Internal Medicine
DX: N18.3 Chronic kidney disease, stage 3 (moderate) (principal); N25.81 Secondary hyperparathyroidism of renal origin; R53.81 Other malaise; R53.83 Other fatigue

== ENCOUNTER 2018-09-16 06:12 | Inpatient (IN) ==
--- NOTE | 2018-08-31 14:24 | PAT Medication Instructions ---
Medication Instructions Date of Service August 31, 2018 Home Medications Medication Instructions Recorded metronidazole [Flagyl] 500 mg PO BID 14 Days #28 tab 08/22/18 sulfamethoxazole-trimethoprim 1 tab PO BID 14 Days #28 tab 08/22/18 [Bactrim DS] valacyclovir 500 mg PO DAILY NEEDED pantoprazole 40 mg PO BID sertraline 100 mg PO QAM ergocalciferol (vitamin D2) 50,000 unit PO MONTHLY atorvastatin 20 mg tablet 20 mg PO QAM diclofenac sodium 1 dose TOPICAL DAILY NEEDED ranitidine HCl 150 mg PO DAILY NEEDED thioridazine 25 mg PO Q2D ziprasidone HCl [Geodon] 40 mg PO .LUNCH ziprasidone HCl [Geodon] 60 mg PO QAM Continue as directed valacyclovir 500 mg PO DAILY NEEDED STOP taking 24 hours before surgery diclofenac sodium 1 dose TOPICAL DAILY NEEDED DO NOT take the morning of surgery ergocalciferol (vitamin D2) 50,000 unit PO MONTHLY ziprasidone HCl [Geodon] 60 mg PO QAM Take morning of surgery With a small sip of water, OTHERWISE NOTHING TO EAT OR DRINK AFTER MIDNIGHT: pantoprazole 40 mg PO BID sertraline 100 mg PO QAM atorvastatin 20 mg tablet 20 mg PO QAM ranitidine HCl 150 mg PO DAILY NEEDED thioridazine 25 mg PO Q2D Take evening before surgery pantoprazole 40 mg PO BID ranitidine HCl 150 mg PO DAILY NEEDED Other Notes If you have any questions please call us at [phone] or [phone] or [phone] or [phone]
--- NOTE | 2018-08-31 15:38 | Anesthesiology Consultation ---
Date of Service August 31, 2018 Assessment & Plan (1) Encounter for pre-operative examination: Chart Review Chart Review: Acceptable Risk for Surgery and Patient seen in Pre Admission Testing Consults Requested medical (Dr. Jimenez (09/01)) Patient was seen by PCP on 09/01 for preoperative evaluation. Per note from that date, "as long as EKG shows no acute change, I feel patient is acceptable risk for OR w/o further cardiac testing being needed." Teaching & Discussion Pre-Anesthesia Teaching/Discussion Notes: Instructed NPO after midnight before surgery, except medications with 15 cc of water. Medication instructions provided according to the PAT guidelines. History Surgery Operation Date: 09/16/18 08:15 Proposed Procedures p Right Total Hip Arthroplasty - León Villalobos MD Height/Weight Height: 5 ft 1 in Weight: 76.2 kg Allergies Allergy/AdvReac Type Severity Reaction Status Date / Time chlorhexidine Allergy Mild Rash Verified 08/27/18 10:50 oxycodone [From Percodan] Allergy Mild swelling Verified 08/27/18 10:50 codeine AdvReac Mild Nausea Verified 08/27/18 10:50 hydrocodone AdvReac Mild Gastrointestinal Verified 08/27/18 10:50 Upset lansoprazole AdvReac Mild ABDOMINAL Verified 08/27/18 10:50 PAIN quetiapine AdvReac Mild "doesnt Verified 08/27/18 10:50 work with my psychosis" Medications Home Medications Medication Instructions Recorded Confirmed Last Taken valacyclovir 500 mg PO DAILY PRN #0 tab 06/02/14 08/27/18 08/08/18 pantoprazole 40 mg PO BID #0 12/02/16 08/27/18 08/22/18 sertraline 100 mg PO QAM #0 12/02/16 08/27/18 08/22/18 ergocalciferol (vitamin D2) 50,000 unit PO MONTHLY #0 cap 04/03/17 08/27/18 08/16/18 atorvastatin 20 mg tablet 20 mg PO QAM 12/23/17 08/27/18 08/22/18 diclofenac sodium 1 dose TOPICAL DAILY PRN 05/31/18 08/27/18 08/15/18 ranitidine HCl 150 mg PO DAILY PRN 05/31/18 08/27/18 05/25/18 08:00 metronidazole [Flagyl] 500 mg PO BID 14 Days #28 tab 08/22/18 08/27/18 Unknown sulfamethoxazole-trimethoprim 1 tab PO BID 14 Days #28 tab 08/22/18 08/27/18 U nknown [Bactrim DS] thioridazine 25 mg PO Q2D 08/22/18 08/27/18 08/21/18 ziprasidone HCl [Geodon] 40 mg PO .LUNCH 08/27/18 08/27/18 Unknown ziprasidone HCl [Geodon] 60 mg PO QAM 08/27/18 08/27/18 Unknown Past Medical History Medical History Lumbar spondylosis (Chronic) Stage III chronic kidney disease (Chronic) Anxiety (Chronic) Barretts esophagus (Chronic) Depression (Chronic) Diverticular disease (Chronic) DIVERTICULITIS AND ON MEDS AT PRESENT GERD (gastroesophageal reflux disease) (Chronic) controlled Hiatal hernia (Chronic) Hyperlipidemia (Chronic) Hyperparathyroidism (Chronic) IBS (irritable bowel syndrome) (Chronic) Osteoarthritis (Chronic) Schizophrenia (Chronic) AGE 27 Hx of herpes simplex infection ON BUTTOCKS WHEN UNDER STRESS Obesity Exercise / Class Metabolic Activity III < 4 Walking/Shop/Light housework (Own ADLs and Light housework. Able to climb FOS. Denies CP with activity. Does get some SOB with over exertion. ) Past Family History Family History Mother Family history of reaction to anesthesia unsure what happened, ? low blood pressure Sister Family history of reaction to anesthesia LOW BP Past Surgical History Surgical History History of appendectomy History of arthroplasty of left knee History of arthroscopic knee surgery right History of cholecystectomy 05/16/11 - ETT #7.5, Valdes #2 (Somewhat anterior airway), Attempt x 3 intubation History of colonoscopy WITH POLYPECTOMY History of esophagogastroduodenoscopy (EGD) History of lumpectomy of right breast History of tooth extraction History of total hip arthroplasty left History of total knee replacement Right TKA= 07/24/15= SAB + PNB at [facility] Past Anesthesia History No Hx of Anesthesia Complications and No Family Hx of Anesthesia Complications History of PONV No Hx of PONV and No Hx of Motion Sickness Social History Smoking Status: Former smoker Smoking cigarettes per day: Smoked ~1ppd x 15 years Do You Dip or Chew Tobacco: No Smoking End Date: 1982 Hx Alcohol Use: Yes Alcohol type: wine and hard liquor alcohol intake frequency: a few times a week (1-2 per week ) Hx Substance Use: No substance use type: does not use Review of Systems Patient denies chest pain, shortness of breath, cough, wheezing, palpitations. +STOUT (occasionally with overexertion) +Joint Pain (Both Hips) +Acid Reflux (Controlled with current medications) Physical Exam Vital Signs BP: 137/66 P: 78 R: 16 T: 98.2 SPO2: 96% on RA ENMT Thyromental Distance: > or= 3.5 Finger Breadths (3.5) Mallampati Class: I Neck normal visual inspection and trachea midline; neck extension not limited Respiratory normal respiratory effort Auscultation: lungs clear to auscultation bilaterally Cardiovascular Rate/Rhythm: regular rate and regular rhythm Heart Sounds: no murmur Vessels: no carotid bruit Neurologic moves all extremities Psychiatric Orientation: alert and oriented x 3 Testing Laboratory Results 08/31/18 15:34 PT 10.5 Seconds (9.0-12.0) 08/31/18 15:34 INR 1.0 (0.9-1.1) 08/31/18 15:34 APTT 25.5 Seconds (21.0-31.0) 08/31/18 15:34 Hemoglobin A1c 5.9 % (4.5-5.6) H 08/31/18 15:34 Blood Type O Positive 08/31/18 15:34 Antibody Screen NEGATIVE 08/31/18 15:34 08/31/18 15:34 Urine Culture - Final Urine,Clean Catch No growth - less than 1,000 colonies/mL. Laboratory Tests 08/22/18 09:30 WBC 10.45 Hgb 12.7 Hct 37.7 Plt Count 217 Urine done 08/22/18 -> 3+ Blood, >30 Epithelials, otherwise NEGATIVE Electrocardiogram Date: 08/31/18 Findings: + NSR @ (80) and + no change from (06/24/18) Chest X-Ray Date: 10/20/17 Findings: + NAD Cervical Spine Date: 10/30/17 FINDINGS: The cervical spine is visualized from C1 through the superior endplate of T1. There is no fracture. No subluxation. Moderate degenerative disc changes throughout. Most prominent from C4 through C6. Prevertebral soft tissues and the atlantodens interval are intact. Mild osteophytic narrowing of the neuroforamina bilaterally at the C4-C5 and to a lesser extent C5-C6 levels. Mild degenerative changes of the lateral elements throughout. IMPRESSION: Mild to moderate degenerative change. No acute process.
[2018-08-31 16:06] LABS: Partial Thromboplastin Ratio 0.9; Partial Thromboplastin Time 25.5 Seconds (21.0-31.0); Prothrombin Time 10.5 Seconds (9.0-12.0)
[2018-08-31 16:27] LABS: Albumin Level 3.9 gm/dl (3.4-5.0); Calcium 9.4 mg/dl (8.5-10.1); Creatinine Clr Calc Pharmacy 38.5 ml/min; Est GFR (African American) 47.2; Est GFR (Non-African American) 40.7; Potassium 4.4 mmol/L (3.5-5.1)
[2018-08-31 16:30] LABS: Albumin Globulin Ratio 1.1 (0.9-2); Bilirubin,Total 0.3 mg/dl (0.2-1); Globulin 3.5 gm/dl (2.5-4.0); Total Protein 7.4 gm/dl (6.4-8.2)
[2018-09-01 06:06] LABS: Estimated Average Glucose 123 mg/dl; Hemoglobin A1C 5.9 % (4.5-5.6)
--- NOTE | 2018-09-01 08:07 | History & Physical Report ---
Date of Service September 01, 2018 Assessment & Plan (1) Avascular necrosis of bone of right hip: DIAGNOSIS: Right hip avascular necrosis. PROCEDURE: Right total hip arthroplasty. PLAN: The patient is scheduled to undergo this procedure with Dr. León Villalobos at the [facility] as an inpatient on 09/16/2018. Risks and complications of the procedure such as infection, bleeding, pain, scarring, nerve, blood vessel damage, weakness, wound problems, stiffness, incomplete relief of symptoms, hardware failure, hardware loosening, wear, fracture, tendon or ligament injury, dislocation, leg-length inequality, blood clots, embolism, heart attack, stroke and were explained to the patient at her visit with Dr. Villalobos on August 20 and informed consent to perform the procedure was obtained at that time. We will need to obtain preoperative medical clearance from the patient's primary care provider, Dr. Jesus Jimenez, with whom she has an appointment scheduled later this week. We will also obtain a preoperative PT/INR, blood type and screen, urine culture, EKG, hemoglobin A1c, and a nasal culture for MRSA. We have already obtained a CBC with differential, complete metabolic panel, and a urinalysis that were done on 08/22. The patient states she has a walker at home from her previous hip surgery and states she will bring it with her on the day of her procedure. The patient was advised she will be provided with narcotic pain medication upon discharge f rom the hospital for pain control along with diclofenac sodium. I also advised her that we will have her on 2 baby aspirin per day for 30 days postoperatively for DVT prophylaxis along with the use of SIDDHARTHA stockings. I advised her that most likely she will stay 1 night in the hospital and we will discharge her day #1 postoperatively. She states she will do in-home therapy for 2 weeks and then will transition to outpatient therapy in our PT clinic with Eder Hubbard. I reviewed total hip precautions, the opportunity to attend lectures, discharge planning. The patient states that she does not need any of these because she has already undergone total knee and hip replacement in the past. I also reeducated her about the use of antibiotics since she already has a standing order with her dentist prior to her dental cleanings or procedures for prophylactic antibiotic use. The patient states she has a hip kit at home from her previous hip surgery and she already has a handicap placard for her vehicle. The patient verbalized understanding of all information provided during today's visit, thanked us for the care she has received and states if she has questions or concerns that should arise prior to her procedure date she will contact the clinic accordingly. She is scheduled to meet with anesthesia for preoperative medical clearance at 3:30 this afternoon and states she will obtain necessary testing that she has not already done prior to that visit. History of Present Illness Chief Complaint: CHIEF COMPLAINT: Right hip pain. Primary Care Provider: Jesus Jimenez MD HISTORY OF PRESENT ILLNESS: This 67-year-old female presents to clinic today for her preoperative history and physical. The patient complains of persistent right hip pain since March of this year. She recently saw her operations specialists due to an elevated sed rate and CRP and after seeing the operations specialists, he ordered an MRI of the patient's hip. MRI showed that the patient had avascular necrosis of the femoral head with collapse of the subchondral bone of the superior femoral head along with a subchondral cyst in the dome of the acetabulum and was referred to our clinic for consultation for possible total hip arthroplasty. The patient refers most of her pain to the right groin. It increases with stretching or walking. She denies any numbness or tingling, but states that her gait is antalgic. PAST MEDICAL HISTORY: Schizophrenia, hyperparathyroidism, stage III chronic kidney disease, hyperlipidemia, depression and anxiety along with heart palpitations, gastroesophageal reflux and hiatal hernia. PAST SURGICAL HISTORY: Bilateral total knee arthroplasty, left total hip arthroplasty, cholecystectomy, appendectomy, and breast surgery. FAMILY HISTORY: Positive for cancer and problems with anesthesia. ALLERGIES: THE PATIENT HAS ALLERGIES TO CODEINE, PREVACID, OXYCODONE, HYDROCODONE, AND CHLORHEXIDINE. CURRENT MEDICATIONS: Atorvastatin 20-mg oral tablet daily, pantoprazole 40-mg oral delayed release tablet daily, sertraline 100-mg oral tablet daily, thioridazine 25-mg oral tablet daily, Tylenol 1000 mg daily, vitamin D2 50,000 international units oral capsule 1 cap monthly and ziprasidone 20-mg oral capsule 40 mg twice daily. SOCIAL HISTORY: The patient states that she usually consumes approximately 1 alcoholic beverage per week. She denies tobacco or illicit drug use. Allergies Allergy/AdvReac Type Severity Reaction Status Date / Time chlorhexidine Allergy Mild Rash Verified 08/27/18 10:50 oxycodone [From Percodan] Allergy Mild swelling Verified 08/27/18 10:50 codeine AdvReac Mild Nausea Verified 08/27/18 10:50 hydrocodone AdvReac Mild Gastrointestinal Verified 08/27/18 10:50 Upset lansoprazole AdvReac Mild ABDOMINAL Verified 08/27/18 10:50 PAIN quetiapine AdvReac Mild "doesnt Verified 08/27/18 10:50 work with my psychosis" Home Medications Home Medications Medication Instructions Recorded Confirmed Type valacyclovir 500 mg PO DAILY PRN #0 tab 06/02/14 08/27/18 History pantoprazole 40 mg PO BID #0 12/02/16 08/27/18 History sertraline 100 mg PO QAM #0 12/02/16 08/27/18 History ergocalciferol (vitamin D2) 50,000 unit PO MONTHLY #0 cap 04/03/17 08/27/18 History atorvastatin 20 mg tablet 20 mg PO QAM 12/23/17 08/27/18 History diclofenac sodium 1 dose TOPICAL DAILY PRN 05/31/18 08/27/18 History ranitidine HCl 150 mg PO DAILY PRN 05/31/18 08/27/18 History metronidazole [Flagyl] 500 mg PO BID 14 Days #28 tab 08/22/18 08/27/18 Rx sulfamethoxazole-trimethoprim 1 tab PO BID 14 Days #28 tab 08/22/18 08/27/18 Rx [Bactrim DS] thioridazine 25 mg PO Q2D 08/22/18 08/27/18 History ziprasidone HCl [Geodon] 40 mg PO .LUNCH 08/27/18 08/27/18 History ziprasidone HCl [Geodon] 60 mg PO QAM 08/27/18 08/27/18 History Past Med/Surg History Medical History Lumbar spondylosis (Chronic) Stage III chronic kidney disease (Chronic) Anxiety (Chronic) Barretts esophagus (Chronic) Depression (Chronic) Diverticular disease (Chronic) DIVERTICULITIS AND ON MEDS AT PRESENT GERD (gastroesophageal reflux disease) (Chronic) controlled Hiatal hernia (Chronic) Hyperlipidemia (Chronic) Hyperparathyroidism (Chronic) IBS (irritable bowel syndrome) (Chronic) Osteoarthritis (Chronic) Schizophrenia (Chronic) AGE 27 Hx of herpes simplex infection ON BUTTOCKS WHEN UNDER STRESS Obesity Surgical History History of appendectomy History of arthroplasty of left knee History of arthroscopic knee surgery right History of cholecystectomy History of colonoscopy WITH POLYPECTOMY History of esophagogastroduodenoscopy (EGD) History of lumpectomy of right breast History of tooth extraction History of total hip arthroplasty left History of total knee replacement Right TKA= 07/24/15= SAB + PNB at [facility] Family History Mother Family history of reaction to anesthesia unsure what happened, ? low blood pressure Sister Family history of reaction to anesthesia LOW BP Social History Preferred Language: Guatemalan Communication Ability: Effective Visual Impairment: No Limitations Solar System Installer Required: No Beliefs That Will Affect Care: None Current Living Situation: Spouse Other Information That Helps Us Care for You: No Feels Safe at Home: Yes Safety Concerns: Feels Safe At This Time Smoking Status: Former smoker Cigarettes Per Day: Smoked ~1ppd x 15 years Do You Dip or Chew Tobacco: No Smoking End Date: 1982 Second Hand Exposure: Yes ( smoked) Tobacco Cessation Education Requested by Patient: No Hx Alcohol Use: Yes Alcohol type: wine and hard liquor Hx Substance Use: No Review of Systems All systems reviewed & are unremarkable except as noted in HPI & below Physical Exam Physical Exam: PHYSICAL EXAMINATION: Skin: The patient's skin is normal in appearance. No skin lesions or discharge. Eyes: Pupils are equal and react to light and accommodating. Extraocular movements are intact. Throat: Posterior pharynx is clear with absence of edema, erythema or exudate. Cardiovascular exam: The patient has a regular rate and rhythm; no murmurs or gallops appreciated. Lungs: Auscultation of the lung vale reveals clear breath sounds throughout with no wheezing, rales or rhonchi. Abdomen is mildly obese, nondistended, nontender with normoactive bowel sounds. Extremities: Right hip: Range of motion is limited to 80 degrees of flexion and external rotation to 3 0 degrees, internal rotation of negative 10 degrees. The patient has a positive Stinchfield test, tenderness over the greater trochanter. She is able to perform a straight-leg raise test, has a negative log roll test. Pain is referred to the anterior groin with palpation. She is neurovascularly intact in the right lower extremity. Her peripheral pulses are easily palpable. Capillary refill is less than 2 seconds. There is no edema, erythema, ecchymosis or palpable bony deformity; however, there is palpable crepitation with passive range of motion of the hip joint. Neurologic exam: Cranial nerves 2-12 are intact. No motor or sensory deficit. Psychological/general exam: The patient is alert and oriented x3 with proper grooming and hygiene. Results & Data Laboratory Results 08/31/18 08/31/18 08/31/18 Range/Units 15:34 15:34 15:34 PT (9.0-12.0) Seconds INR (0.9-1.1) APTT (21.0-31.0) Seconds PTT Ratio Sodium 139 (136-145) mmol/L Potassium 4.4 (3.5-5.1) mmol/L Chloride 105 (98-107) mmol/L Carbon Dioxide 28 (21-32) mmol/L Anion Gap 6.0 (3-11) BUN 18 (7-18) mg/dl Creatinine 1.36 H (0.6-1.2) mg/dl Est Cr Clr Drug Dosing 38.5 ml/min Est GFR ( Amer) 47.2 Est GFR (Non-Af Amer) 40.7 BUN/Creatinine Ratio 13.0 (10-20) Glucose 97 (70-99) mg/dl Estimat Average Glucose 123 mg/dl Hemoglobin A1c 5.9 H (4.5-5.6) % Calcium 9.4 (8.5-10.1) mg/dl Total Bilirubin 0.3 (0.2-1) mg/dl AST 26 (15-37) U/L ALT 20 (12-78) U/L Alkaline Phosphatase 122 H (45-117) U/L Total Protein 7.4 (6.4-8.2) gm/dl Albumin 3.9 (3.4-5.0) gm/dl Globulin 3.5 (2.5-4.0) gm/dl Albumin/Globulin Ratio 1.1 (0.9-2) Nasal Screen MRSA (PCR) Negative (Negative) Blood Type Antibody Screen 07/16/19 07/16/19 Range/Units 15:34 15:34 PT 10.5 (9.0-12.0) Seconds INR 1.0 (0.9-1.1) APTT 25.5 (21.0-31.0) Seconds PTT Ratio 0.9 Sodium (136-145) mmol/L Potassium (3.5-5.1) mmol/L Chloride (98-107) mmol/L Carbon Dioxide (21-32) mmol/L Anion Gap (3-11) BUN (7-18) mg/dl Creatinine (0.6-1.2) mg/dl Est Cr Clr Drug Dosing ml/min Est GFR ( Amer) Est GFR (Non-Af Amer) BUN/Creatinine Ratio (10-20) Glucose (70-99) mg/dl Estimat Average Glucose mg/dl Hemoglobin A1c (4.5-5.6) % Calcium (8.5-10.1) mg/dl Total Bilirubin (0.2-1) mg/dl AST (15-37) U/L ALT (12-78) U/L Alkaline Phosphatase (45-117) U/L Total Protein (6.4-8.2) gm/dl Albumin (3.4-5.0) gm/dl Globulin (2.5-4.0) gm/dl Albumin/Globulin Ratio (0.9-2) Nasal Screen MRSA (PCR) (Negative) Blood Type O Positive Antibody Screen NEGATIVE
[~2018-09-16 06:12] MED LIST changes: -ACET1TAB84 PO; +ACETAMINOPHEN 500 MG TAB PO SCH; +CEFAZOLIN 2000MG 2,000 MG/15 ML SYR IV SCH; +CeleBREX 200 MG CAP PO SCH; -ERGO500011 PO; +FAMOTIDINE 20 MG TAB PO SCH; -LPT20 PO; +LR 500ML BOLUS, THEN 15ML/HR IV SCH; +LR 60ML/HR IV SCH; +METOCLOPRAMIDE HCL 10 MG TABLET PO SCH; -PANT40TA2 PO; +ROPIVACAINE 0.5% HCL/PF 150 MG, BUPIVACAINE 0.5% MPF 30 ML, EPINEPHrine 0.15 MG, Ketoro... INFIL SCH; +SCOPOLAMINE 1.5 MG TDSY TD SCH; -THIO50TA PO; +TRAMADOL HCL 50 MG TABLET PO SCH; +TRANEXAMIC ACID 1,000 MG **IV Pre-op IV SCH; -VALA1TAB31 PO; -ZLF/100 PO; -[UNRECOGNIZED DRUG - CODE] OPB; +dexAMETHasone 4 MG TAB PO SCH
[2018-09-16] MEDS ORDERED: TRANEXAMIC ACID 1,000 MG **IV Intra-op IV SCH (06:30)
[2018-09-16] MEDS ORDERED: BUPIVACAINE 0.5 % 5 MG/1 ML PF 10ML VIAL ONE (06:34)
[2018-09-16] MEDS ORDERED: MIDAZOLAM HCL 1 MG/ML 2ML VIAL ONE ×2 (07:34→08:26)
[2018-09-16] MEDS ORDERED: fentaNYL citrate 100 MCG/2 ML VIAL ONE (07:34)
--- NOTE | 2018-09-16 07:54 | History & Physical Bridge Note ---
Date of Service September 16, 2018 History & Physical Bridge Note I have examined the patient, reviewed the History & Physical and in the interval since the performance of the History & Physical I have noted the following changes of clinical significance: no changes noted
[2018-09-16] MEDS ORDERED: ORTHO JOINT ANESTHETIC ONE (08:03)
[2018-09-16] MEDS ORDERED: LIDOCAINE HCL 2% 2 ML VIAL/AMP(20MG/ML) INFIL ONE (08:29)
[2018-09-16] MEDS ORDERED: PROPOFOL IV EMULSION 10 MG/ML 20 ML VIAL IV ONE (08:29)
[2018-09-16] MEDS ORDERED: ONDANSETRON INJ 2 MG/ML 2 ML VIAL ONE (08:29)
[2018-09-16] MEDS ORDERED: ATROPINE SULFATE 0.1 MG/ML 10ML SYR IV PRN (08:42)
[2018-09-16] MEDS ORDERED: ePHEDrine sulfate 50 MG/ML AMP IV PRN (08:42)
[2018-09-16] MEDS ORDERED: fentaNYL citrate 100 MCG/2 ML VIAL IV PRN (08:42)
[2018-09-16] MEDS ORDERED: ONDANSETRON INJ 2 MG/ML 2 ML VIAL IV PRN ×2 (08:42→11:16)
--- NOTE | 2018-09-16 10:05 | Operative Report ---
Post Operative Report Pre & Post Diagnosis Operation Date: 09/16/18 08:15 Pre-Op Diagnosis: Right Hip Avascular Necrosis Post-Op Diagnosis: Right Hip Avascular Necrosis Procedure Operation Date: 09/16/18 08:15 Actual Procedures p Right Total Hip Arthroplasty(Right) - León Villalobos MD Surgeon PK Griselda FELTON Modeling And Simulation Analyst [facility] Estimated Blood Loss 100 (per surgeon.) Findings Consistent with Post-Op Diagnosis Specimens see operative report Drains none Complications none Disposition Accompanied Patient To Recovery: Yes Disposition: Recovery Room Indications This 68-year-old white female presented to the office with complaints of intractable right hip pain. She had tried conservative care measures without improvement. She has a history of chronic renal disease and is unable to take NSAIDs. Preoperative imaging was obtained. She elected to proceed with surgical intervention after being educated about potential risks and outcomes. Description of Procedure Patient was administered a spinal anesthetic and then taken to the operating room where she was given sedation. She was prepped and draped in the usual sterile fashion. Please see Dr. Cole's operative report for specifics of the procedure. I was present for the entire case from initial patient positioning through final wound closure. Assistance was provided in tissue retraction, hemostasis, trial implant placement, final implant placement, and final wound closure. Patient was taken to the recovery room in satisfactory condition. I attest to the content of the Intraoperative Record and any orders documented therein. Any exceptions are noted below.
--- NOTE | 2018-09-16 10:49 | XRay Report ---
AP PELVIS, CROSSTABLE LATERAL RIGHT HIP History: Right total hip arthroplasty. Degenerative arthritis. Postop. FINDINGS: The patient is status post a right total hip arthroplasty. The hardware is intact. No fract ure or dislocation. Evidence for prior left total hip arthroplasty. IMPRESSION: Right total hip arthroplasty. No evidence for hardware complication Electronically signed by: Dion Cook M.D. 09/16/2018 10:47 AM
[2018-09-16] MEDS ORDERED: BISACODYL 10 MG SUPP PR PRN (11:16)
[2018-09-16] MEDS ORDERED: VALACYCLOVIR HCL 500 MG TABLET PO PRN (11:16)
[2018-09-16] MEDS ORDERED: ALUMINUM/MAGNESIUM SUSP 30 ML UDC PO PRN (11:16)
[2018-09-16] MEDS ORDERED: NALOXONE HCL 0.4 MG/1 ML VIAL/CARP IV PRN (11:16)
[2018-09-16] MEDS ORDERED: DiphenhydrAMINE HCL 50 MG/ML VIAL IV PRN (11:16)
[2018-09-16] MEDS ORDERED: MAGNESIUM HYDROXIDE SUSP 30 ML UDC PO PRN (11:16)
--- NOTE | 2018-09-16 11:24 | Anesthesiology Progress Note ---
Date of Service September 16, 2018 Anesthesia Post Procedure Vital Signs Vital Signs: Temp Pulse Pulse Resp BP Pulse Ox 09/16/18 10:40 36.6 C 53 L 16 124/69 100 09/16/18 10:30 57 L 16 128/75 98 09/16/18 10:20 68 16 104/87 99 09/16/18 10:10 70 14 138/83 98 09/16/18 10:02 36.2 C L 65 16 122/61 96 09/16/18 07:20 36.7 C 66 20 132/88 98 Pain Intensity Right Hip: Pain Intensity: 0 Transfer of Care Handoff Completed per policy Notes Mental Status: alert / awake / arousable Patient Amnestic to Procedure: Yes Nausea / Vomiting: adequately controlled Pain: adequately controlled Airway Patency, RR, SpO2: stable & adequate BP & HR: stable & adequate Hydration State: stable & adequate Neuraxial Anesthesia: was administered and sensory block is resolving Anesthetic Complications: no major complications apparent
--- NOTE | 2018-09-16 13:25 | Operative Report ---
DATE OF OPERATION: 09/16/2018 PREOPERATIVE DIAGNOSIS: Right hip avascular necrosis of the femoral head. POSTOPERATIVE DIAGNOSIS: Right hip avascular necrosis of the femoral head. OPERATION PERFORMED: Right total hip arthroplasty. SURGEON: León Villalobos MD STEEL CONSTRUCTION WORKER: Rickie Cook PA-C. ESTIMATED BLOOD LOSS: 100 mL. INTRAVENOUS FLUIDS: 700 mL crystalloid. SPECIMENS: Femoral head. COMPLICATIONS: None. IMPLANTS: 1. DePuy 52 mm outer diameter acetabular [place] Gription sector cup. 2. A 40 mm x 6.5 mm cancellous bone screw. 3. [place] Ultrex polyethylene liner, 32 mm inner diameter and 52 mm outer diameter. 4. DePuy [place] size 4 standard offset femoral stem. 5. Biolox delta 32 mm femoral head with a +5 offset. INDICATIONS: Ms. Marin is a 68-year-old female who is status post a left total hip arthroplasty done back in 2014 by another surgeon. She had a good result after this surgery. She had acute onset of hip pain late last year. This has progressively worsened since that time. X-rays showed a preserved joint space; however, MRI revealed avascular necrosis with collapse of the femoral head as the clear etiology for underlying hip pain. She does have medical history significant for chronic kidney disease stage III and schizophrenia. She did undergo a rheumatologic workup and was not found to have any rheumatologic explanation for her hip symptoms. We aspirated her hip and sent her for Synovasure testing which was negative. We then proceeded with a conversation about a total hip arthroplasty. After reviewing all the risks and benefits of surgery, the patient elected to proceed. 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 Due to her chronic kidney disease, she will not be allowed to be prescribed nonsteroidal anti-inflammatories to prophylax against heterotopic ossification and therefore she is at risk for developing heterotopic ossification in this hip. After reviewing all the risks and benefits of surgery, the patient elected to proceed. All questions were answered. Informed consent was signed. OPERATIVE FINDINGS: The patient had moderate hip effusion with normal-appearing synovial fluid. She had a mild amount of synovitis. A ceramic on polyethylene bearing total hip arthroplasty was performed through a posterior approach. DESCRIPTION OF PROCEDURE: The patient was identified in the preoperative holding area where her surgical site was marked. She was given a spinal anesthetic and then brought back to main operating room where she was placed on the operating room table and moved into the lateral decubitus position. Axillary roll was placed. All bony prominences were padded. Perioperative antibiotics were administered. She was prepped and draped in a normal sterile fashion. Prior to incision, a multidisciplinary timeout was called. All in the room were in agreement. We began by making a 14 cm long curved incision for a posterior approach to the hip. We dissected down through subcutaneous tissues to the level of the fascia. Torres elevator was used to elevate the subcutaneous tissues off the fascia to facilitate closure at the end of the case. The fascia was incised in line with the incision. Charnley bow was placed. Trochanteric bursa was excised. The quadratus femoris and short external rotators as well as piriformis were dissected off the posterior aspect of the capsule. We then made a box cut in the capsule and dislocated the femoral head. Our neck cut was made at 9 mm, which was our preoperative template. Prior to making the neck cut, we did measure her lesser trochanter to center femoral head distance which was 50 mm. The acetabulum was then exposed. The labrum was sharply excised. The contents of cotyloid fossa removed with electrocautery. We then began reaming. We started with the 43 mm reamer as she had a 50 mm cup done on her other side. We progressively reamed her up to a size 50. There was still a little bit of space between the reamer and the rim. Therefore, I continued to ream with a 51 mm reamer and just touch the outer rim with a 52 mm reamer. We then opened up the 52 mm outer diameter Gription acetabular sector cup. This was impacted into position with 40 degrees of lateral opening and 25 degrees of anteversion. A single cancellous screw was placed up into the ilium at 40 mm length. Excellent fixation was obtained. Next, the Ultrex polyethylene liner for a 32 mm femoral head was positioned, so that the tabs would engage with the locking mechanism. It was then impacted in position. We checked the locking mechanism and confirmed it, had engaged which it had. We then turned our attention towards the femur. The lateral capsule was removed off of the lateral neck with cautery. A cookie cutter was used followed by the intramedullary canal finder. We then reamed her up with the intramedullary reamers to between a size 4 and size 5. We then began broaching her with the size 1 broach[address] She broached all the way up to a size 4, at which point she had excellent fill of the femoral neck with a good torsional stability. We then trialled with a standard offset neck and a +5 head. The hip was reduced. She had good stability with a shuck test as well as extension and external rotation. She was stable in the sleeper position. At 90 degrees of hip flexion, she could be internally rotated 60 degrees before starting the lever out of the cup. I was very happy with the stability exam. Therefore, the hip was dislocated. The femoral trial was removed. The femoral canal was irrigated and dried. The real size 4 [place] high offset stem was opened up. This was impacted down into position. It sat at the same level as the broach. Therefore, we opened up the +5 ceramic 32 mm femoral head and gently impacted this onto the trunnion. We checked to ensure that this had engaged, which it had. We then atraumatically reduced the hip. We then began to close. The wound was irrigated with sterile Betadine solution which was allowed to sit for 3 minutes. We then injected our cocktail of clonidine, dexamethasone, ropivacaine, ketorolac, and epinephrine into the pericapsular tissues as well as the subcutaneous tissues. The piriformis and short external rotators as well as capsule were repaired through bone tunnels using #2 Vicryl sutures. The Charnley bow was removed. The fascia was run with a looped #1 PDS suture. Two layers of #1 PDS were used for the subcutaneous tissues. 2-0 Vicryl was used for the dermal layer. A ZipLine was then used for the skin. A Silverlon dressing was then placed. The patient was then moved supine, her sedation was lifted, leg lengths were checked. She was placed into an abduction pillow and she was transferred to the recovery room in stable condition. POSTOPERATIVE COURSE: The patient will be admitted overnight for pain control and monitoring. She will work with physical therapy with posterior hip precautions. She will be on aspirin for DVT prophylaxis. As stated above, we will avoid NSAIDs due to her chronic kidney disease. She will likely discharge home tomorrow assuming there are no issues overnight. I attest to the content of the Intraoperative Record and any orders documented therein. Any exception s are noted below.
[2018-09-16] MEDS: ZIPRASIDONE HCL 20 MG CAP PO SCH (13:38)
[2018-09-16] MEDS: SODIUM CHLORIDE 0.9% 1000ML 1,000 ML IV SCH ×2 (13:46→23:48)
[2018-09-16] MEDS: ACETAMINOPHEN 500 MG TAB PO SCH ×2 (13:46→21:02)
[2018-09-16] MEDS: CEFAZOLIN 2000MG 2,000 MG/15 ML SYR IV SCH ×2 (15:36→23:34)
[2018-09-16] MEDS ORDERED: CHECK SCOPOLAMINE PATCH PLACEMENT SCH (16:00)
[2018-09-16] MEDS: PANTOprazole 40 MG TAB PO SCH (16:54)
[2018-09-16] MEDS: ASCORBIC ACID 500 MG TAB PO SCH (16:55)
[2018-09-16] MEDS: FERROUS GLUCONATE 324 MG TAB PO SCH (16:55)
[2018-09-16] MEDS: ASPIRIN 81 MG ECTAB PO SCH (19:53)
[2018-09-16] MEDS: DOCUSATE SODIUM 100 MG CAP PO SCH (19:54)
[2018-09-16] MEDS: HYDROmorphone INJ 0.5 MG/0.5 ML SYR IV PRN (19:57)
[2018-09-16] MEDS ORDERED: SENNA 8.6 MG TAB PO SCH (21:00)
[2018-09-17] MEDS: ACETAMINOPHEN 500 MG TAB PO SCH ×2 (05:05→14:01)
[2018-09-17 05:56] LABS: Hematocrit (blood only) 28.8 % (37-47); Hemoglobin 9.7 g/dL (12.0-16.0); Immature Granulocytes # (auto) 0.02 K/uL (0.00-0.02); Immature Granulocytes % (auto) 0.2 %; Lymphocytes # (auto) 0.82 K/uL (1.2-3.4); Lymphocytes % (auto) 7.9 %; Mean Corpuscular Hgb Conc 33.7 g/dL (32-36); Mean Corpuscular Volume 89.4 fL (80-100); Mean Platelet Volume 9.4 fL (7.4-10.4); Monocytes # (auto) 0.82 K/uL (0.11-0.59); Monocytes % (auto) 7.9 %; Neutrophils # (auto) 8.72 K/uL (1.4-6.5); Platelet Count 154 K/uL (130-400); RDW Coefficient of Variation 13.4 % (11.5-14.5); RDW Standard Deviation 44.3 fL (36.4-46.3); Red Blood Count 3.22 M/uL (4.2-5.4); White Blood Count 10.38 K/uL (4.8-10.8)
[2018-09-17 06:34] LABS: BUN Creatinine Ratio 20.2 (10-20); Calcium 8.2 mg/dl (8.5-10.1); Creatinine Clr Calc Pharmacy 42.5 ml/min; Est GFR (Non-African American) 46.6; Potassium 4.2 mmol/L (3.5-5.1)
[2018-09-17] MEDS: PANTOprazole 40 MG TAB PO SCH (07:12)
--- NOTE | 2018-09-17 08:00 | Anesthesiology Progress Note ---
Date of Service September 17, 2018 Anesthesia Post Procedure Vital Signs Vital Signs: Temp Pulse Pulse Pulse Resp BP Pulse Ox 09/17/18 07:19 36.4 C L 56 L 16 131/70 96 09/17/18 04:15 36.6 C 58 L 16 118/64 96 09/16/18 23:14 36.6 C 51 L 16 109/67 93 09/16/18 19:36 36.5 C 51 L 17 124/65 98 09/16/18 14:03 65 18 115/66 97 09/16/18 12:55 82 18 123/69 99 09/16/18 12:05 64 18 126/77 100 09/16/18 11:28 49 L 18 136/62 100 09/16/18 11:00 36.4 C L 61 14 127/72 96 09/16/18 10:40 36.6 C 53 L 16 124/69 100 09/16/18 10:30 57 L 16 128/75 98 09/16/18 10:20 68 16 104/87 99 09/16/18 10:10 70 14 138/83 98 09/16/18 10:02 36.2 C L 65 16 122/61 96 Pain Intensity Right Hip: Pain Intensity: 5 Back: Pain Intensity: 6 Notes Mental Status: alert / awake / arousable and participated in evaluation Patient Amnestic to Procedure: Yes Nausea / Vomiting: adequately controlled Pain: adequately controlled Airway Patency, RR, SpO2: stable & adequate BP & HR: stable & adequate Hydration State: stable & adequate Neuraxial Anesthesia: was administered and sensory block resolved Anesthetic Complications: no major complications apparent and Pt Satisfied with anesthetic care
[2018-09-17] MEDS: ASPIRIN 81 MG ECTAB PO SCH (08:26)
[2018-09-17] MEDS: ASCORBIC ACID 500 MG TAB PO SCH (08:27)
[2018-09-17] MEDS: DOCUSATE SODIUM 100 MG CAP PO SCH (08:28)
[2018-09-17] MEDS: FERROUS GLUCONATE 324 MG TAB PO SCH (08:28)
[2018-09-17] MEDS: HYDROmorphone INJ 0.5 MG/0.5 ML SYR IV PRN (08:30)
[2018-09-17] MEDS ORDERED: ZIPRASIDONE HCL 20 MG CAP PO SCH (09:00)
[2018-09-17] MEDS ORDERED: MULTIVITAMIN TAB PO SCH (09:00)
[2018-09-17] MEDS ORDERED: SERTRALINE HCL 100 MG TABLET PO SCH (09:00)
[2018-09-17] MEDS ORDERED: ATORVASTATIN 20 MG TAB PO SCH (09:00)
[2018-09-17] MEDS: ZIPRASIDONE HCL 20 MG CAP PO SCH (13:54)
--- NOTE | 2018-09-18 04:34 | Discharge Summary ---
Patient of Dr. Villalobos. 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 DISCHARGE DIAGNOSIS: Right hip status post total hip arthroplasty. ATTENDING PHYSICIAN: León Villalobos MD CONSULTING PHYSICIANS: None. PROCEDURE: Right total hip arthroplasty. BRIEF HISTORY OF PRESENT ILLNESS: This 68-year-old white female presented to the office with complaints of persistent right hip pain since March 2018. Lab work and an MRI were obtained. It showed avascular necrosis of the femoral head with collapse of the subchondral bone and subchondral cyst formation. Surgical options were discussed and she elected to proceed with total hip arthroplasty. Pain was affecting her ADLs. No numbness or tingling. HOSPITAL COURSE: The patient was admitted to the hospital on 09/16/2018. She underwent successful total hip arthroplasty under spinal anesthetic. She was taken to the recovery room in satisfactory condition. The patient had an uneventful first day and night in the hospital. On 09/17/2018, she was evaluated. She did well overnight. External pressure dressing was removed. The patient did participate in physical therapy and occupational therapy. She felt ready for discharge and desired discharge to home. She used minimal pain medication during her hospital stay. PAST MEDICAL HISTORY: Significant for schizophrenia, hyperparathyroidism, stage III chronic kidney disease, elevated lipids, depression, anxiety, heart palpitations, GERD, and hiatal hernia. PAST SURGICAL HISTORY: Bilateral total knee arthroplasty, left total hip arthroplasty, cholecystectomy, appendectomy, breast surgery. FAMILY HISTORY: Significant for cancer and difficulty with anesthetics. ALLERGIES: KNOWN ALLERGY TO CODEINE, PREVACID, PERCOCET, HYDROCODONE, AND CHLORHEXIDINE. DISCHARGE MEDICATIONS: Valacyclovir 500 mg p.o. daily p.r.n., pantoprazole 40 mg p.o. b.i.d., sertraline 100 mg p.o. q.a.m., vitamin D2 50,000 units p.o. monthly, atorvastatin 20 mg p.o. q.a.m., ranitidine 150 mg p.o. daily p.r.n., thioridazine 25 mg p.o. every 2 days, Geodon 40 mg at lunch and 60 mg in the morning. New medication, Dilaudid 2 mg tablets, can be taken every 6 hours as needed for pain. Discontinued medication, diclofenac sodium. PHYSICAL EXAMINATION: VITAL SIGNS: Admission vitals, temperature 36.7, pulse 66, respirations 20, BP 132/88. Discharge vitals, temperature 36.4, pulse 49, respirations 18, BP 108/64, O2 sat 96% on room air. GENERAL: Well-developed, well-nourished, elderly white female in no acute distress. Sitting in a chair. Ready for departure. SKIN: Warm and dry with good turgor. No rashes or lesions. Bandage present on her right hip. MUSCULOSKELETAL: The patient has supple motion of her right hip. She ambulates with her walker. Intact motor function to the hip, knee, and ankle. NEUROLOGIC: Gross sensation is intact across the right leg by soft touch. DIET: Discharged on regular diet. DISCHARGE INSTRUCTIONS: Written instructions were provided to the patient regarding her hip precautions. Take the Dilaudid as needed for severe pain. Substitute Tylenol 650 mg every 6 hours as needed for mild discomfort. Follow up in the office on 09/29/2018 for zip system removal. Follow up on 09/30/2018 for physical therapy. Call with any other concerns.
== END 2018-09-17 14:29 | disposition home health service (06) | DRG 470 ==
LOC: ASU 06:12 → 3E 10:18